=== PATIENT | female | born 1965 | race Two or more races ===

== ENCOUNTER 2024-12-07 10:02 | Outpatient (CLI) | payer MEDICAID ==
--- NOTE | 2024-12-07 11:54 | RADIOLOGY REPORT ---
EXAM: DI FEMUR 2 VIEWS CLINICAL INDICATION: LEFT LEG PAIN TECHNIQUE: DI FEMUR 2 VIEWS Comparison: None FINDINGS/IMPRESSION: There is no evidence of acute fracture or dislocation. MODERATE LEFT HIP OSTEOARTHRITIS. The alignment is anatomical. There is no radiopaque foreign body.
== END 2024-12-07 23:59 | disposition home or self-care (01) ==
LOC: RAD 10:02
PROVIDERS: ATTEND General Practice
DX: M16.12 Unilateral primary osteoarthritis, left hip (principal); M79.605 Pain in left leg
CPT/HCPCS: 73552